=== PATIENT | female | born 1980 | race Caucasian/White ===

== ENCOUNTER 2016-09-06 19:08 | Outpatient (CLI) | payer OTHER ==
[~2016-09-06] VITALS: Ht 157.5 cm; Wt 87.9 kg
[2016-09-06 20:16] VITALS: Ht 157.5 cm; Wt 87.9 kg
[2016-09-06 20:17] VITALS: BP 120/67; PULSE 93; RESP 18
[2016-09-06] MEDS ORDERED: PREN-19 PO (20:21)
--- NOTE | 2016-09-06 20:57 | PN ---
Date/Time of Note Date/Time of Note DATE: 09/06/16 TIME: 20:54 OB Subjective Subjective Subjective 36 yo P3 @ 37.4 wks w abdominal pain good FM, possible LOF, no VB OB Objective Objective Objective 120/67, 93, 18, 98.4 Abdomen- gravid, n/t FHT- Cat I [place]- irreg ctx Abdomen: WNL Accelerations: Accelerations Present Decelerations: No Decelerations OB Assessment/Plan Other Assessment: r/o ROM, labor Other plan: nurse to do SVE ROM+ to be done sono for BPP/ANGELITO if all neg, not in labor, d/c home SENDY SIMMONS MD Sep 06, 2016 20:57
--- NOTE | 2016-09-06 21:30 | RADRPT ---
PROCEDURE: US OB biophysical profile. CLINICAL INDICATION: decreased movements, leaking fluid TECHNIQUE: Multiple sonographic images of the pelvis were obtained. The images were reviewed on a PACS workstation. COMPARISON: No prior studies are available for comparison. FINDINGS: There is a single viable intrauterine gestation. Cardiac activity is present with 114 beats per min [place]. There is a vertex presentation. The placenta is fundal. There is no evidence of placental abruption. There is a normal amount of amniotic fluid with an ANGELITO = 11.2 cm. Biophysical profile: movement 2/2 tone 2/2. breathing 2/2 ANGELITO 2/2 Total 03/12 RPTAT: AA . IMPRESSION: Normal biophysical profile. . .Ramesh Smith MD, Date Time Electronically viewed and signed by .Ramesh Smith MD, MD on 09/06/2016 21:30 .S/
--- NOTE | 2016-09-06 23:56 | TRIAGE ---
OB Triage Datetime Report Generated by CPN: 09/06/2016 23:56 Datetime: 09/06/2016 21:45 Vaginal Exam Dilatation (cms): 3.5 Effacement (%): 80 Station: -3 Exam By: M SALDAÑA Vaginal Bleeding: None Cervix, Consistency: Soft Cervix, Position: Posterior Datetime: 09/06/2016 20:13 Assessment Type: Triage Maternal Assessment Level of Consciousness: Fully Conscious DTR's/Clonus: DTRs 2+; No Clonus Headache: Denies Blurred Vision: Yes Respiratory Effort: Unlabored Breath Sounds, Left: Clear and Equal Breath Sounds, Right: Clear and Equal Nausea/Vomiting: Denies RUQ Epigastric Pain: Denies Lower Extremities Edema: None Degree: None Upper Extremities Edema: None Degree: None Facial Edema: None Datetime: 09/06/2016 20:10 EGA: 37.4 Datetime: 09/06/2016 19:49 Time of Arrival: 09/06/2016 19:05 Arrived By: Ambulatory Arrived From: Home Chief Complaint: Constant Low back pain and low abd pain Movement: Present Contractions: Occasional Time Contractions Began: 09/02/2016 09:00 Contractions: Q2-3HRS Rupture of Membranes: Denies Vaginal Bleeding: None Vaginal Discharge: Denies Recent Sexual Intercouse: Denies Abdominal Trauma: Not Applicable Patient Complaints: Contractions; Back Pain Initial Plan: VS, EFM, SVE, ROM+,BPP, REPEAT SVE
== END 2016-09-06 22:45 | disposition home or self-care (01) ==
LOC: OBT 19:08 → L-D 19:08 → OBT 22:45 → MERGE 09-23 11:13
PROVIDERS: ATTEND Obstetrics & Gynecology
DX: O26.893 Other specified pregnancy related conditions, third trimester (principal); R10.9 Unspecified abdominal pain; O09.523 Supervision of elderly multigravida, third trimester; Z3A.37 37 weeks gestation of pregnancy
CPT/HCPCS: 76818; 84112; Z7500; G0463

== ENCOUNTER 2016-09-19 16:31 | Inpatient (IN) | payer OTHER ==
[~2016-09-19] VITALS: Ht 160 cm; Wt 87.5 kg
[~2016-09-19 16:31] MED LIST: PREN-19 PO
[2016-09-19 16:36] VITALS: Ht 160 cm; Wt 87.5 kg
[2016-09-19 16:37] VITALS: BP 124/67
--- NOTE | 2016-09-19 18:13 | RADRPT ---
PROCEDURE: US OB biophysical profile. CLINICAL INDICATION: evaluation, labor TECHNIQUE: Multiple sonographic images of the pelvis were obtained. The images were reviewed on a PACS workstation. COMPARISON: Obstetrical ultrasound from 09/06/2016 FINDINGS: There is a single viable intrauterine gestation. Cardiac activity is present with 157 beats per min [place]. There is a vertex presentation. The placenta is fundal. There is no evidence of placental abruption. There is a low amount of amniotic fluid with an ANGELITO = 5.3 cm. Biophysical profile: movement 2/2 tone 2/2. breathing 2/2 ANGELITO 2/2 Total 03/12 RPTAT: AA . IMPRESSION: Normal biophysical profile. Low ANGELITO of 5.3 cm. Physician Joesph Date Time Electronically viewed and signed by Physician Joesph on 09/19/2016 18:13 /
[2016-09-19] MEDS ORDERED: LACTATED RINGER'S 1,000 ML IV ONE (19:00)
[2016-09-19 20:16] LABS: ADD UMIC NO; URINE BILIRUBIN (Dip) NEGATIVE (NEGATIVE); URINE BLOOD (Dip) NEGATIVE (NEGATIVE); URINE COLOR LT. YELLOW (YELLOW); URINE GLUCOSE (Dip) NEGATIVE (NEGATIVE); URINE KETONES (Dip) NEGATIVE (NEGATIVE); URINE LEUKOCYTE ESTERASE (Dip) NEGATIVE (NEGATIVE); URINE NITRITE (Dip) NEGATIVE (NEGATIVE); URINE TOTAL PROTEIN (Dip) NEGATIVE (NEGATIVE); URINE UROBILINOGEN (Dip) 0.2 E.U./dL (0.1-1.0)
--- NOTE | 2016-09-19 21:41 | HP ---
Date/Time of Note Date/Time of Note DATE: 09/19/16 TIME: 21:38 OB - History Hx of Present Free Text/Dictation 36-year-old with IUP at 39 weeks [address] care at [facility] presented with complaint of contractions. She was noted to have minimally changing during observation however she had borderline low ANGELITO and ultrasound. ANGELITO was 5.3. She reported leaking of amniotic fluid for the last 3 days. She denied any fever or chills. I am not sure reported negative. Patient will be admitted for observation rule out labor as well as hydration and repeat her ANGELITO tomorrow. If any cervical change occurs she will be admitted for labor otherwise we will repeat her amniotic fluid index after hydration tomorrow BPP 03/12. Patient denies any complications during her antepartum course. : 4 Para: 3 Care: Good Care Past Family/Social History * Past Medical, Surgical, Family and Obstetric Histories reviewed from chart. OB Admission Exam Vital Signs Vital Signs Vital Signs Date Time Temp Pulse Resp B/P Pulse Ox O2 Delivery O2 Flow Rate FiO2 09/19/16 16:37 97.8 124/67 Room Air Physical Exam HEENT: WNL Heart: Rhythm Normal Lungs: Clear Abdomen: WNL Extremities: Normal Reflexes: Normal Cervical Dilatation: Fingertip Effacement: 50% Station: -3 Membranes: Intact Heart Rate: 130's Accelerations: Accelerations Present Decelerations: No Decelerations Varibility: Moderate Contractions on Admission: >10 Minutes Apart Intensity: Moderate OB Assessment/Plan Other Assessment: IUP at 39 weeks Rule out labor Borderline low amniotic fluid. ANGELITO 5.9 Other plan: Will be admitted to labor and delivery IV hydration Serial cervical exam If does not go to labor consider repeat ANGELITO tomorrow after overnight hydration FRANK MONTIEL MD Sep 19, 2016 21:41
--- NOTE | 2016-09-19 22:13 | TRIAGE ---
OB Triage Datetime Report Generated by CPN: 09/19/2016 22:13 Datetime: 09/19/2016 21:50 Monitor Mode: External Quality: Mild Pattern: Normal: <= 5 Contractions in 10 Minutes Resting Tone [place]: Relaxed Heart Rate FHR Baseline Rate: 130 Monitor Mode: External US FHR Baseline Changes: No Baseline Change Variability: Moderate 6-25 bpm Accelerations: 15X15 Decelerations: None Category: Category I Datetime: 09/19/2016 20:45 Monitor Mode: External Quality: Mild Pattern: Normal: <= 5 Contractions in 10 Minutes Resting Tone [place]: Relaxed Contraction Comments: toco replaced Heart Rate FHR Baseline Rate: 130 Monitor Mode: External US FHR Baseline Changes: No Baseline Change Variability: Moderate 6-25 bpm Accelerations: 15X15 Decelerations: None Category: Category I Vaginal Exam Dilatation (cms): 1.0 Effacement (%): 40 Station: -3 Exam By: E Alvarado Membrane Status: Intact Amniotic Fluid Amount: None Amniotic Fluid Odor: None Vaginal Bleeding: None Pool: Negative Cervix, Consistency: Soft Cervix, Position: Posterior Presentation 'A': Cephalic Datetime: 09/19/2016 20:30 Stage of : OB Triage Datetime: 09/19/2016 20:02 Monitor Mode: External Quality: Mild Pattern: Normal: <= 5 Contractions in 10 Minutes Resting Tone [place]: Relaxed Heart Rate FHR Baseline Rate: 140 Monitor Mode: External US FHR Baseline Changes: No Baseline Change Variability: Moderate 6-25 bpm Accelerations: 15X15 Decelerations: None Category: Category I Datetime: 09/19/2016 19:20 Stage of : OB Triage Monitor Mode: External Quality: Mild Pattern: Normal: <= 5 Contractions in 10 Minutes Resting Tone [place]: Relaxed Heart Rate FHR Baseline Rate: 130 Monitor Mode: External US FHR Baseline Changes: No Baseline Change Variability: Moderate 6-25 bpm Accelerations: 15X15 Decelerations: None Category: Category I Pain Assessment Pain Scale: 4 Pain Presence: Intermittent Pain Type: Cramping Pain Location: Abdomen Datetime: 09/19/2016 18:53 Labor Evaluation Frequency: 0 Monitor Mode: External Pattern: Normal: <= 5 Contractions in 10 Minutes Resting Tone [place]: Relaxed Heart Rate FHR Baseline Rate: 135 Monitor Mode: External US Accelerations: 15X15 Decelerations: None Category: Category I Datetime: 09/19/2016 18:49 Stage of : OB Triage Datetime: 09/19/2016 17:11 Stage of : OB Triage Comments: ORDERS- FOR EFW BPP/ANGELITO Datetime: 09/19/2016 16:42 Stage of : OB Triage Assessment Type: Triage Maternal Assessment Level of Consciousness: Fully Conscious DTR's/Clonus: DTRs 2+; No Clonus Headache: Denies Blurred Vision: No Respiratory Effort: Unlabored; Regular Rhythm; Equal Expansion Breath Sounds, Left: Clear and Equal Breath Sounds, Right: Clear and Equal Nausea/Vomiting: Denies RUQ Epigastric Pain: Denies Lower Extremities Edema: None Degree: None Upper Extremities Edema: None Degree: None Facial Edema: None Temperature Route: Oral Fall Risk Assessment History of Falling: (0) No Secondary Diagnosis: (0) No Ambulatory Aid: (0) Bedrest/Nurse Assist IV Therapy: (0) No Gait: (0) Normal/Bedrest/Immobile Mental Status: (0) Oriented to Own Ability Fall Score: 0 Fall Risk Score Definition: No Risk: No action required Pain Assessment Pain Scale: 5 Pain Presence: Intermittent Pain Type: Contraction Pain Location: Abdomen Pain Goal: 0 Vaginal Exam Dilatation (cms): 0.5 Effacement (%): 50 Station: -3 Exam By: S. ELINOR Datetime: 09/06/2016 22:52 Stage of : OB Triage Labor Evaluation Frequency: 0 Monitor Mode: External Resting Tone [place]: Relaxed Heart Rate FHR Baseline Rate: 135 Monitor Mode: External US Variability: Moderate 6-25 bpm Accelerations: 15X15 Decelerations: None Category: Category I Datetime: 09/06/2016 22:48 Vaginal Exam Dilatation (cms): 0.5 Effacement (%): 70 Station: -3 Exam By: M SALDAÑA Vaginal Bleeding: None Cervix, Consistency: Moderate Cervix, Position: Posterior Presentation 'A': Cephalic Datetime: 09/06/2016 20:26 Labor Evaluation Frequency: occasional Monitor Mode: External Duration (sec)2399: 60-80 Quality: Mild Resting Tone [place]: Relaxed Heart Rate FHR Baseline Rate: 135 Monitor Mode: External US Variability: Moderate 6-25 bpm Accelerations: 15X15 Decelerations: None Category: Category I Datetime: 09/06/2016 20:13 Fall Risk Assessment History of Falling: (0) No Secondary Diagnosis: (0) No Ambulatory Aid: (0) Bedrest/Nurse Assist IV Therapy: (0) No Gait: (0) Normal/Bedrest/Immobile Mental Status: (0) Oriented to Own Ability Fall Score: 0 Fall Risk Score Definition: No Risk: No action required Datetime: 09/06/2016 20:10 Time of Arrival: 09/19/2016 16:32 EGA: 39.3 Arrived By: Wheelchair Arrived From: Home Chief Complaint: UC'S Movement: Present Contractions: Regular Time Contractions Began: 09/19/2016 08:00 Contractions: Q 5 MINUTES Rupture of Membranes: Denies Vaginal Bleeding: None Vaginal Discharge: Denies Recent Sexual Intercouse: Denies Abdominal Trauma: Not Applicable Patient Complaints: Contractions Initial Plan: NST, VE Datetime: 09/06/2016 19:49 Provider Notified: IRIS
[2016-09-19] MEDS ORDERED: ACETAMINOPHEN 325 MG TAB PO PRN (22:30)
[2016-09-19] MEDS ORDERED: AL HYDROX/MG HYDROX/SIMETH 30 ML CUP PO PRN (22:30)
[2016-09-19 22:47] LABS: INR 0.97; PROTIME 12.9 Sec (12.2-14.2)
[2016-09-19] MEDS: LACTATED RINGER'S 1,000 ML IV SCH (22:47)
[2016-09-19 22:48] LABS: PARTIAL THROMBOPLASTIN TIME 30.3 Sec (25.0-35.0)
[2016-09-19 23:03] LABS: BASOPHIL # 0.1 10^3/ul (0.0-0.1); BASOPHILS % 0.5 % (0.0-2.0); HEMATOCRIT 33.5 % (37.0-47.0); LYMPHOCYTES # 2.3 10^3/ul (0.8-2.9); LYMPHOCYTES % 21.4 % (15.0-51.0); MEAN CORPUSCULAR HEMOGLOBIN 26.2 pg (29.0-33.0); MEAN CORPUSCULAR HGB CONC 32.9 g/dl (32.0-37.0); MEAN CORPUSCULAR VOLUME 79.8 fl (82.0-101.0); MEAN PLATELET VOLUME 13.6 fl (7.4-10.4); MONOCYTE # 0.6 10^3/ul (0.3-0.9); MONOCYTES % 5.2 % (0.0-11.0); NEUTROPHIL # 7.8 10^3/ul (1.6-7.5); NEUTROPHILS % 72.9 % (39.0-77.0); PLATELET COUNT 223 10^3/UL (140-440); RED CELL DISTRIBUTION WIDTH 16.7 % (11.5-14.5); UNCORRECTED WBC 10.8 10^3/ul (4.8-10.8); WHITE BLOOD COUNT 10.8 10^3/ul (4.8-10.8)
[2016-09-19 23:05] LABS: CONDITION 1; LH ANALYZER COMMENTS 1; SUSPECT 1
[2016-09-20] MEDS: LACTATED RINGER'S 1,000 ML IV SCH (04:05)
--- NOTE | 2016-09-20 07:09 | RADRPT ---
PROCEDURE: Obstetrical ultrasound, limited. CLINICAL INDICATION: Pelvic pain. TECHNIQUE: Multiple sonographic images of the pelvis were obtained using transabdominal technique . Images were obtained with holman scale and color Doppler. The images were reviewed on a PACS works tation. COMPARISON: 09/19/2016. FINDINGS: There is a single living intrauterine gestation with the fetus in a vertex presentation. hear t tones of 131 beats per minute are identified. The placenta is posterior in location, grade 3. Th ere is low normal amniotic fluid volume with an ANGELITO of 8.1 cm. IMPRESSION: Single viable intrauterine gestation. Low normal ANGELITO of 8.1 cm. .Philipp Nino MD, MD Date Time Electronically viewed and signed by .Philipp Nino MD, on 09/20/2016 07:08 .T/
--- NOTE | 2016-09-20 11:07 | RADRPT ---
PROCEDURE: Limited OB ultrasound CLINICAL INDICATION: Low ANGELITO TECHNIQUE: Sonographic evaluation to assess the ANGELITO was performed. Transabdominal imaging of the gravid uterus was performed. COMPARISON: OB ultrasound for ANGELITO dated 09/20/2016 at 07:00 a.m. FINDINGS: There is a single live intrauterine with a heart rate of 150 bpm. position is cephalic. The placenta is posterior. The ANGELITO measures 8.0 cm. IMPRESSION: The ANGELITO measures 8.0 cm. No significant interval change. RPTAT: HH .Sally Faustin MD, MD Date Time Electronically viewed and signed by .Sally Faustin MD, on 09/20/2016 11:07 .G/
--- NOTE | 2016-09-21 07:47 | RADRPT ---
PROCEDURE: US OB. CLINICAL INDICATION: Size and dates TECHNIQUE: Multiple sonographic images of the pelvis and gravid uterus were obtained. The images were reviewed on a PACS workstation. COMPARISON: 09/06/16 FINDINGS: There is a single viable intrauterine gestation. Cardiac activity is present with 159 beats per min [place]. There is a vertex presentation. The placenta is fundal. There is no evidence for an abruption or placenta previa. Measurements were made in order to determine age. The results are as follows: BPD =9.6 cm HC =34.4 cm AC =33.2 cm FL =7.7 cm Estimated gestational age of approximately 38 weeks and 6 days based on ultrasound measurements. Clinical age: 39 weeks and 3 days. The estimated date of delivery is 09/27/16, based on ultrasound measurements. The EFW = 3430 g, 42.4%, based on LMP age. RPTAT: AA IMPRESSION: Single viable intrauterine gestation of approximately 38 weeks and 6 days based on ultrasound measu rements. .Ramesh Smith MD, Date Time Electronically viewed and signed by .Ramesh Smith MD, on 09/19/2016 17:56 .S/
== END 2016-09-20 10:45 | disposition home or self-care (01) | DRG 782 ==
LOC: L-D 16:31 → OBT 16:31 → L-D 21:15 → OBT 21:15 → L-D 22:07
PROVIDERS: ADMIT Obstetrics & Gynecology; ATTEND Obstetrics & Gynecology
DX: O41.03X0 Oligohydramnios, third trimester, not applicable or unspecified (principal); Z3A.39 39 weeks gestation of pregnancy
CPT/HCPCS: 36415; 76815; 76816; 76818; 81003; 84112; 85025; 85610; 85730; 86592; 86900; 86901; 96360; 96361; G0463; J7120

== ENCOUNTER 2016-09-26 09:23 | Outpatient (CLI) | payer OTHER ==
[~2016-09-26] VITALS: Ht 157.5 cm; Wt 90.6 kg
[2016-09-26 09:31] VITALS: BP 116/72; PULSE 74; RESP 18; Ht 157.5 cm; Wt 90.6 kg
[2016-09-26] MEDS ORDERED: FER325 PO (09:31)
--- NOTE | 2016-09-26 10:16 | RADRPT ---
PROCEDURE: OB ultrasound for biophysical profile CLINICAL INDICATION: Post dates TECHNIQUE: Multiple sonographic images of the pelvis were obtained. Transabdominal view of the gr avid uterus are available for review. The images were reviewed on a PACS workstation. COMPARISON: OB ultrasound 07/20/2017 FINDINGS: breathing movement = 2/2 tone = 2/2 motion = 2/2 ANGELITO = 2/2 ANGELITO = 5.2 cm, decreased compared to prior study. Single live intrauterine with cardiac activity. heart rate equals 129 beats p er minute. Presentation is cephalic. The placenta is posterior. IMPRESSION: 1. Single viable intrauterine gestation. 2. Biophysical profile = 8/8. 3. ANGELITO = 5.2 cm, decreased compared to prior study, and consistent with borderline oligohydramnios. Continued follow-up is recommended. RPTAT: KK .Howard Connolly MD, MD Date Time Electronically viewed and signed by .Howard Connolly MD, MD on 09/26/2016 10:16 .B/
--- NOTE | 2016-09-26 10:19 | TRIAGE ---
OB Triage Datetime Report Generated by CPN: 09/26/2016 10:18 Datetime: 09/26/2016 09:29 Assessment Type: Triage Maternal Assessment Level of Consciousness: Fully Conscious DTR's/Clonus: DTRs 2+; No Clonus Headache: Denies Blurred Vision: No Respiratory Effort: Unlabored; Regular Rhythm; Equal Expansion Breath Sounds, Left: Clear and Equal Breath Sounds, Right: Clear and Equal Nausea/Vomiting: Denies RUQ Epigastric Pain: Denies Lower Extremities Edema: None Degree: None Upper Extremities Edema: None Degree: None Facial Edema: None Fall Risk Assessment History of Falling: (0) No Secondary Diagnosis: (0) No Ambulatory Aid: (0) Bedrest/Nurse Assist IV Therapy: (0) No Gait: (0) Normal/Bedrest/Immobile Mental Status: (0) Oriented to Own Ability Fall Score: 0 Fall Risk Score Definition: No Risk: No action required Datetime: 09/20/2016 11:22 Comments: MONITOR OFF.PT DC HOME IN STABLE CONDITION.DC INSTRUCTIONS AND LABOR PRECAURTIONS GIVEN. PT TO GO TO TRIAGE TOMORROW TO REPEAT ANGELITO.PT VERBALIZES UNDERSTANDING Datetime: 09/20/2016 11:20 Labor Evaluation Frequency: NONE Pattern: Normal: <= 5 Contractions in 10 Minutes Heart Rate FHR Baseline Rate: 125 FHR Baseline Changes: No Baseline Change Variability: Moderate 6-25 bpm Accelerations: 15X15 Decelerations: None Category: Category I Pain Presence: None/Denies Datetime: 09/20/2016 11:09 Comments: U/S RESULT ANGELITO REPEATED 8.0 Datetime: 09/20/2016 11:06 Vaginal Exam Dilatation (cms): 1.0 Effacement (%): 50 Station: -3 Exam By: MJ Datetime: 09/20/2016 10:35 Stage of : Antepartum Labor Evaluation Frequency: 4-7 Monitor Mode: External Duration (sec)2399: 50-65 Quality: Mild Pattern: Normal: <= 5 Contractions in 10 Minutes Resting Tone [place]: Relaxed Heart Rate FHR Baseline Rate: 125 Monitor Mode: External US FHR Baseline Changes: No Baseline Change Variability: Moderate 6-25 bpm Accelerations: 15X15 Decelerations: None Category: Category I Pain Assessment Pain Scale: 2 Pain Presence: Intermittent Pain Type: Cramping Pain Location: Abdomen Datetime: 09/20/2016 09:40 Labor Evaluation Frequency: 4-7 Monitor Mode: External Duration (sec)2399: 50-65 Quality: Mild Pattern: Normal: <= 5 Contractions in 10 Minutes Resting Tone [place]: Relaxed Heart Rate FHR Baseline Rate: 125 Monitor Mode: External US FHR Baseline Changes: No Baseline Change Variability: Moderate 6-25 bpm Accelerations: 15X15 Decelerations: None Category: Category I Pain Assessment Pain Scale: 2 Pain Presence: Intermittent Pain Type: Cramping Pain Location: Abdomen Datetime: 09/20/2016 09:00 Stage of : Antepartum Labor Evaluation Frequency: 2-7 Monitor Mode: External Duration (sec)2399: 40-55 Quality: Mild Pattern: Normal: <= 5 Contractions in 10 Minutes Resting Tone [place]: Relaxed Heart Rate FHR Baseline Rate: 125 Monitor Mode: External US FHR Baseline Changes: No Baseline Change Variability: Moderate 6-25 bpm Accelerations: 15X15 Decelerations: None Category: Category I Datetime: 09/20/2016 08:51 Comments: SNACK AND JUICE OFFERED Datetime: 09/20/2016 08:30 Comments: U/S RESULT OBTAINED.ANGELITO 8.1 Datetime: 09/20/2016 08:00 Labor Evaluation Frequency: 2-7 Monitor Mode: External Duration (sec)2399: 40-65 Quality: Mild Pattern: Normal: <= 5 Contractions in 10 Minutes Resting Tone [place]: Relaxed Heart Rate FHR Baseline Rate: 125 Monitor Mode: External US FHR Baseline Changes: No Baseline Change Variability: Moderate 6-25 bpm Accelerations: 15X15 Decelerations: None Category: Category I Pain Assessment Pain Scale: 4 Pain Presence: Intermittent Pain Type: Cramping Pain Location: Abdomen Pain Relief Measures: Comfort Measures Datetime: 09/20/2016 07:25 Assessment Type: Ongoing Assessment Maternal Assessment Level of Consciousness: Fully Conscious DTR's/Clonus: DTRs 2+; No Clonus Headache: Denies Blurred Vision: No Respiratory Effort: Unlabored; Regular Rhythm; Equal Expansion Breath Sounds, Left: Clear and Equal Breath Sounds, Right: Clear and Equal Nausea/Vomiting: Denies RUQ Epigastric Pain: Denies Lower Extremities Edema: None Degree: None Upper Extremities Edema: None Degree: None Facial Edema: None Fall Risk Assessment History of Falling: (0) No Secondary Diagnosis: (0) No Ambulatory Aid: (0) Bedrest/Nurse Assist IV Therapy: (20) Yes Gait: (0) Normal/Bedrest/Immobile Mental Status: (0) Oriented to Own Ability Fall Score: 20 Fall Risk Score Definition: No Risk: No action required Datetime: 09/20/2016 06:30 Stage of : Antepartum Labor Evaluation Frequency: 2-7 Monitor Mode: External Duration (sec)2399: 50-70 Pattern: Normal: <= 5 Contractions in 10 Minutes Resting Tone [place]: Relaxed Heart Rate FHR Baseline Rate: 130 Monitor Mode: External US Variability: Moderate 6-25 bpm Accelerations: 15X15 Decelerations: None Category: Category I Pain Assessment Pain Scale: 5 Pain Presence: Intermittent Pain Type: Contraction Pain Location: Abdomen; Back Pain Relief Measures: Comfort Measures Datetime: 09/20/2016 05:44 Monitor Mode: External Monitor Mode: External US Datetime: 09/20/2016 05:43 Monitor Mode: External Datetime: 09/20/2016 05:36 Monitor Mode: External Pattern: Normal: <= 5 Contractions in 10 Minutes Resting Tone [place]: Relaxed Contraction Comments: Not picking up contractions due to patient position. Heart Rate FHR Baseline Rate: 130 Monitor Mode: External US Variability: Moderate 6-25 bpm Accelerations: 15X15 Decelerations: Variable Category: Category II Pain Assessment Pain Scale: 5 Pain Presence: Intermittent Pain Type: Contraction Pain Location: Abdomen; Back Pain Relief Measures: Comfort Measures Datetime: 09/20/2016 04:24 Stage of : Labor Labor Evaluation Frequency: IRREGULAR Monitor Mode: External Duration (sec)2399: 40-80 Pattern: Normal: <= 5 Contractions in 10 Minutes Resting Tone [place]: Relaxed Heart Rate FHR Baseline Rate: 130 Monitor Mode: External US Variability: Moderate 6-25 bpm Accelerations: 15X15 Decelerations: Prolonged Category: Category I Pain Assessment Pain Scale: 5 Pain Presence: Intermittent Pain Type: Contraction Pain Location: Abdomen; Back Pain Relief Measures: Comfort Measures Datetime: 09/20/2016 04:23 Monitor Mode: External US Datetime: 09/20/2016 04:22 Monitor Mode: External US Datetime: 09/20/2016 04:21 Monitor Mode: External US Datetime: 09/20/2016 03:30 Stage of : Labor Labor Evaluation Frequency: Irregular Monitor Mode: External Duration (sec)2399: 60-80 Pattern: Normal: <= 5 Contractions in 10 Minutes Resting Tone [place]: Relaxed Heart Rate FHR Baseline Rate: 135 Monitor Mode: External US Variability: Moderate 6-25 bpm Accelerations: 15X15 Decelerations: None Category: Category I Pain Assessment Pain Scale: 5 Pain Presence: Intermittent Pain Type: Contraction Pain Location: Abdomen; Back Pain Relief Measures: Comfort Measures Datetime: 09/20/2016 03:28 Monitor Mode: External US Datetime: 09/20/2016 03:08 Stage of : Antepartum Pain Assessment Pain Scale: 5 Pain Presence: Intermittent Pain Type: Contraction Pain Location: Abdomen; Back Pain Goal: 2 Pain Relief Measures: Comfort Measures Vaginal Exam Dilatation (cms): 1.0 Effacement (%): 40 Station: -3 Exam By: SILVANO KAUFMAN Vaginal Bleeding: None Cervix, Consistency: Soft Cervix, Position: Posterior Datetime: 09/20/2016 02:34 Labor Evaluation Frequency: Irregular Monitor Mode: External Duration (sec)2399: 50-100 Pattern: Normal: <= 5 Contractions in 10 Minutes Resting Tone [place]: Relaxed Heart Rate FHR Baseline Rate: 135 Monitor Mode: External US Variability: Moderate 6-25 bpm Accelerations: 15X15 Decelerations: Late Category: Category I Datetime: 09/20/2016 02:11 Stage of : Antepartum Interventions: IV Bolus Datetime: 09/20/2016 01:50 Stage of : Labor Datetime: 09/20/2016 01:35 Stage of : Antepartum Monitor Mode: External Pattern: Normal: <= 5 Contractions in 10 Minutes Resting Tone [place]: Relaxed Contraction Comments: No contractions picked up at this time due to patient's position. [place] adjus hernandez. Heart Rate FHR Baseline Rate: 130 Monitor Mode: External US Variability: Moderate 6-25 bpm Accelerations: 15X15 Decelerations: None Category: Category I Pain Assessment Pain Scale: 5 Pain Presence: Intermittent Pain Type: Contraction Pain Location: Abdomen; Back Pain Relief Measures: Comfort Measures Datetime: 09/20/2016 00:25 Stage of : Antepartum Labor Evaluation Frequency: IRREGULAR Monitor Mode: External Duration (sec)2399: 60-100 Pattern: Normal: <= 5 Contractions in 10 Minutes Resting Tone [place]: Relaxed Heart Rate FHR Baseline Rate: 125 Monitor Mode: External US Variability: Moderate 6-25 bpm Accelerations: Prolonged Decelerations: None Category: Category I Pain Assessment Pain Scale: 5 Pain Presence: Intermittent Pain Type: Contraction Pain Location: Abdomen; Back Pain Goal: 2 Pain Relief Measures: Comfort Measures Datetime: 09/19/2016 23:30 Stage of : Antepartum Labor Evaluation Frequency: IRREGULAR Monitor Mode: External Duration (sec)2399: 60-100 Pattern: Normal: <= 5 Contractions in 10 Minutes Resting Tone [place]: Relaxed Heart Rate FHR Baseline Rate: 125 Monitor Mode: External US Variability: Moderate 6-25 bpm Accelerations: Prolonged Decelerations: None Category: Category I Pain Assessment Pain Scale: 5 Pain Presence: Intermittent Pain Type: Contraction Pain Location: Abdomen; Back Pain Relief Measures: Comfort Measures Datetime: 09/19/2016 22:21 Stage of : Antepartum Assessment Type: Admission Assessment Time of Arrival: 09/26/2016 09:18 EGA: 40.3 Arrived By: Ambulatory Arrived From: Home Chief Complaint: PT HERE FOR NST/BPP FOR POST DATES Movement: Present Contractions: Denies/Absent Rupture of Membranes: Denies Vaginal Bleeding: None Vaginal Discharge: Denies Recent Sexual Intercouse: Denies Abdominal Trauma: Not Applicable Patient Complaints: None Time Provider Notified: 09/26/2016 10:15 Provider Notified: DONNA Initial Plan: NST/BPP Maternal Assessment Level of Consciousness: Fully Conscious DTR's/Clonus: DTRs 2+; No Clonus Headache: Denies Blurred Vision: No Respiratory Effort: Unlabored; Regular Rhythm; Equal Expansion Breath Sounds, Left: Clear and Equal Breath Sounds, Right: Clear and Equal Nausea/Vomiting: Denies RUQ Epigastric Pain: Denies Lower Extremities Edema: None Degree: None Upper Extremities Edema: None Degree: None Facial Edema: None Fall Risk Assessment History of Falling: (0) No Secondary Diagnosis: (0) No Ambulatory Aid: (0) Bedrest/Nurse Assist IV Therapy: (20) Yes Gait: (0) Normal/Bedrest/Immobile Mental Status: (0) Oriented to Own Ability Fall Score: 20 Fall Risk Score Definition: No Risk: No action required Labor Evaluation Frequency: occasional Duration (sec)2399: 60 Pattern: Normal: <= 5 Contractions in 10 Minutes Resting Tone [place]: Relaxed Heart Rate FHR Baseline Rate: 135 Variability: Moderate 6-25 bpm Accelerations: 15X15 Decelerations: None Category: Category I Pain Assessment Pain Scale: 0 Pain Presence: None/Denies Pain Type: N/A Pain Goal: 2 Datetime: 09/19/2016 16:42 Fall Score: 0 Fall Risk Score Definition: No Risk: No action required Datetime: 09/06/2016 20:13 Fall Score: 0 Fall Risk Score Definition: No Risk: No action required Datetime: 09/06/2016 20:10 EGA: 39.3 Arrived From: Triage
--- NOTE | 2016-12-04 16:45 | QN ---
Documentation Comment Post dates SUMA THOMPSON MD December 04, 2016 16:45
== END 2016-09-26 10:25 | disposition home or self-care (01) ==
LOC: OBT 09:23 → L-D 09:24 → OBT 10:25
PROVIDERS: ATTEND Obstetrics & Gynecology
DX: O48.0 Post-term pregnancy (principal); O09.523 Supervision of elderly multigravida, third trimester; Z3A.40 40 weeks gestation of pregnancy
CPT/HCPCS: 76818; Z7500; G0463

== ENCOUNTER 2016-09-26 16:57 | Inpatient (IN) | payer OTHER ==
[~2016-09-26] VITALS: Ht 157.5 cm; Wt 86.8 kg
[~2016-09-26 16:57] MED LIST changes: +FER325 PO
[2016-09-26 17:43] VITALS: Ht 157.5 cm; Wt 86.8 kg
[2016-09-26 17:44] VITALS: BP 125/69; PULSE 93; RESP 18
[2016-09-26] MEDS ORDERED: LIDOCAINE 1% (MPF) 30 ML INJ INJ PRN (18:00)
[2016-09-26] MEDS ORDERED: IBUPROFEN 600 MG TAB PO PRN (18:00)
[2016-09-26] MEDS ORDERED: OXYTOCIN 30 UNITS/LR 500 ML IV PRN (18:00)
[2016-09-26] MEDS ORDERED: CARBOPROST 250 MCG INJ IM PRN (18:00)
[2016-09-26] MEDS ORDERED: ACETAMINOPHEN/CODEINE #3 TAB PO PRN (18:00)
[2016-09-26] MEDS ORDERED: DINOPROSTONE 10 MG VAG SUPP VAG ONE (18:00)
[2016-09-26] MEDS ORDERED: MISOPROSTOL 200 MCG TAB PR PRN (18:00)
[2016-09-26] MEDS ORDERED: OXYTOCIN 30 UNITS/LR 500 ML IV SCH ×2 (18:00)
[2016-09-26] MEDS ORDERED: METHYLERGONOVINE 0.2 MG INJ IM PRN (18:00)
[2016-09-26] MEDS ORDERED: BUTORPHANOL 2 MG INJ IV PRN ×2 (18:00)
[2016-09-26] MEDS: LACTATED RINGER'S 1,000 ML IV SCH (18:26)
[2016-09-26 18:59] LABS: BASOPHILS % 0.3 % (0.0-2.0); HEMATOCRIT 31.2 % (37.0-47.0); HEMOGLOBIN 10.5 g/dl (12.0-16.0); MEAN CORPUSCULAR HEMOGLOBIN 26.9 pg (29.0-33.0); MEAN CORPUSCULAR HGB CONC 33.7 g/dl (32.0-37.0); MEAN CORPUSCULAR VOLUME 79.9 fl (82.0-101.0); MEAN PLATELET VOLUME 13.9 fl (7.4-10.4); MONOCYTE # 0.7 10^3/ul (0.3-0.9); MONOCYTES % 6.6 % (0.0-11.0); NEUTROPHILS % 74.1 % (39.0-77.0); PLATELET COUNT 180 10^3/UL (140-440); RED BLOOD COUNT 3.91 10^6/ul (4.20-5.40); RED CELL DISTRIBUTION WIDTH 17.9 % (11.5-14.5); UNCORRECTED WBC 10.7 10^3/ul (4.8-10.8); WHITE BLOOD COUNT 10.7 10^3/ul (4.8-10.8)
[2016-09-26 19:02] LABS: SUSPECT 1
[2016-09-26 19:03] LABS: CONDITION 1; LH ANALYZER COMMENTS 1
[2016-09-26 19:12] LABS: INR 0.95; PROTIME 12.7 Sec (12.2-14.2)
[2016-09-26 19:13] LABS: PARTIAL THROMBOPLASTIN TIME 28.6 Sec (25.0-35.0)
[2016-09-26 19:42] LABS: ANISOCYTOSIS 1+; HYPOCHROMASIA 2+; MICROCYTOSIS 1+; PLATELET ESTIMATE PLT APPEAR ADEQUATE
[2016-09-26] MEDS ORDERED: LACTATED RINGER'S 1,000 ML IV PRN (23:00)
[2016-09-27] MEDS: LACTATED RINGER'S 1,000 ML IV SCH ×2 (00:27→05:35)
[2016-09-27] MEDS ORDERED: FENTAnyl 2MCG/ML-ROPIV 0.2% 100 ML ONE (03:29)
[2016-09-27] MEDS ORDERED: ONDANSETRON 4 MG INJ IV PRN ×3 (03:30→09:30)
[2016-09-27] MEDS ORDERED: FENTAnyl 2MCG/ML-ROPIV 0.2% 100 ML BAG EPI SCH (03:30)
[2016-09-27] MEDS ORDERED: NALOXONE (0.4 MG/ML) INJ IV PRN ×2 (03:30→09:30)
[2016-09-27] MEDS ORDERED: DIPHENHYDRAMINE 50 MG INJ IV PRN ×3 (03:30→09:30)
[2016-09-27] MEDS ORDERED: TERBUTALINE 1 ML ONE (07:43)
[2016-09-27] MEDS ORDERED: CEFAZOLIN 2 GM/50 ML (PMX) 50 ML IVPB ONE (07:52)
[2016-09-27] MEDS ORDERED: LIDOCAINE 2%/EPI 30 ML INJ ONE (07:57)
[2016-09-27] MEDS ORDERED: morphine SULFATE/PF (10 MG/10 ML) INJ ONE (07:58)
[2016-09-27] MEDS: CEFAZOLIN 2 GM/50 ML (PMX) 50 ML IV SCH ×2 (08:04→10:27)
[2016-09-27] MEDS ORDERED: KETOROLAC 30 MG INJ ONE (08:15)
[2016-09-27] MEDS ORDERED: PROPOFOL 20 ML ONE (08:17)
[2016-09-27] MEDS ORDERED: EPHEDrine SULFATE 50 MG/5 ML SYG ONE (08:46)
--- NOTE | 2016-09-27 09:24 | OPR ---
Operative Report Planned Procedure Procedure date Sep 27, 2016 Procedure Description Under satisfactory spinal anesthesia , the patient was prepped and draped and placed in a supine position, tilted to the left. Pfannenstiel incision was made , carried through the subcutaneous tissue. Bleeders brought under control with electrocautery. Fascia incised to the length of the incision. Rectus muscles from the fascia, divided midline. Peritoneum exposed, entered through a transverse incision. Exploration of abdomen revealed gravid uterus. Bladder flap was developed. Transverse incision was made in the lower segment of the uterus. Amniotic sac ruptured. [] amniotic fluid was heavily meconium stained and there was one loop of nuchal cord. [] Nasal oropharyngeal suction was performed. The baby was handed to the team for immediate attention. The placenta was delivered manually intact. Uterine cavity was cleaned with wet sponge and drainage established. Uterus closed in 2 layers using chromic catgut 1 [] in continuous fashion. Peritoneal cavity irrigated with warm saline. Sponge , needle and instrument count reported to be correct. Abdominal peritoneum closed with 0 chromic catgut continuously. Rectus muscle approximated with chromic catgut 1 []. Fascia closed with Vicryl 1, the subcutaneous fatty tissue was approximated with 2-0 chromic catgut and skin closed with jessica. Estimated blood loss 600 []mL. She tolerated the procedures well and was transferred to the recovery room in stable condition. The was male with score of 9 at 1 minute 9 at 5 minutes and a weight of the baby was 6 pound and 5 ounces End of dictation thank you Post-Procedure Findings: Live Baby [], Apgars [] and [], weight [], position [], [] presentation []cord. Physician Certification I, the undersigned physician, hereby certify that I have discussed the procedure described in this consent form with this patient (or the patient's legal manufacturer's service representative), including: * The risk and benefits of the procedure; * Any adverse reactions that may reasonably be expected to occur; * Any alternative efficacious methods of treatment which may be medically viable ; * The potential problems that may occur during recuperation; * Potential for blood transfusion and associated risks/benefits; and . STACEY PARIKH MD Sep 27, 2016 09:24
[2016-09-27] MEDS ORDERED: METOCLOPRAMIDE 10 MG INJ IV PRN (09:30)
[2016-09-27] MEDS ORDERED: MEPERIDINE 25 MG INJ IV PRN (09:30)
[2016-09-27] MEDS ORDERED: HYDROmorphONE (0.2 MG/ML) 10ML SYG IV PRN ×3 (09:30)
[2016-09-27] MEDS ORDERED: HYDROmorphONE 1 MG/ML SYG IV PRN ×3 (09:30)
[2016-09-27] MEDS: KETOROLAC 30 MG INJ IV PRN (10:12)
--- NOTE | 2016-09-27 11:09 | HP ---
Date/Time of Note Date/Time of Note DATE: 09/27/16 TIME: 10:46 OB - History Hx of Present Free Text/Dictation This is a 36 years old female 40 weeks and 4 days, 4 para 3 EDC September 23, 2006 admitted to [facility] for induction of labor on admission pelvic examination indicating long and closed cervix ,patient was placed on Cervidil induction patient responded with uterine contraction however during the course of labor several times heart deceleration noted some 3-4 minutes down to 70s and 80 due to intolerance of the baby to labor contraction doctor Dina covering attending OB, planned for primary section the indication pros and cons was explained to the patient and she agreed with the operation. This patient has been under the care of [facility] in her course was not complicated with gestational diabetes -induced hypertension or any other surgical or medical condition [facility] history, menarche at age 13 history of total of 4 including present with 3 normal vaginal deliveries Allergies, denies allergy to any known medication Social habit, denies of smoking or drinking Review of system within normal Physical examination 5 feet 191lb, temp 97.5 pulse 114 respiration 18 blood pressure 111/55 Head ears nose and throat negative Neck supple no thyromegaly Lungs clear to P&A Heart normal sinus rhythm no murmur Breasts status compatible with the state of the Abdomen, fundal height 39 cm from symphysis pubis heart category 3 Pelvic exam, cervix completely dilated 100% effaced vertex 0 station Extremities no edema moderate superficial varicosities Impression intrauterine at 40 weeks plus gestation category 3 heart rate Plan, emergency primary section, complication of the surgery including bowel or bladder injury infection wound hematoma has been discussed with the patient and she is willing to go ahead with the operation Chief Complaint: Induction of labor Estimated Due Date: Sep 23, 2016 : 4 Para: 3 Care: Good Care Ultrasounds: Normal mid trimester US Obstetrical Complications: None Medical Complications: None Past Family/Social History * Past Medical, Surgical, Family and Obstetric Histories reviewed from chart. Rubella: immune RPR/VDRL: Negative GBS Status: Negative HBsAG: Negative OB Admission Exam Vital Signs Vital Signs Vital Signs Date Time Temp Pulse Resp B/P Pulse Ox O2 Delivery O2 Flow Rate FiO2 09/26/16 17:44 98.2 93 18 125/69 Room Air Physical Exam HEENT: WNL Heart: Rhythm Normal Lungs: Clear, Equal Abdomen: WNL Extremities: Normal Reflexes: Normal Cervical Dilatation: 10cm Effacement: 100% Station: 0 Membranes: Ruptured Amniotic Fluid: Thin Meconium Heart Rate: 130's Accelerations: Accelerations Present Decelerations: Variable Decelerations Varibility: Moderate Contractions on Admission: None Last 72 hours Lab Results CBC & BMP 09/26/16 18:26 SUMA THOMPSON MD Sep 27, 2016 11:05
[2016-09-27] MEDS ORDERED: TERBUTALINE 1 MG/ML INJ SC ONE (12:00)
[2016-09-27 12:20] VITALS: BP 123/60; PULSE 90; RESP 17
[2016-09-27] MEDS ORDERED: OXYCODONE/ACETAMINOPHEN (5/325) TAB PO PRN (13:30)
[2016-09-27] MEDS ORDERED: OXYTOCIN 30 UNITS/LR 500 ML IV PRN (13:30)
[2016-09-27] MEDS ORDERED: CEFAZOLIN 1 GM/50 ML (PMX) 50 ML IVPB SCH (13:30)
[2016-09-27] MEDS ORDERED: METHYLERGONOVINE 0.2 MG INJ IM PRN (13:30)
[2016-09-27] MEDS ORDERED: ACETAMINOPHEN/CODEINE #3 TAB PO PRN ×2 (13:30)
[2016-09-27] MEDS ORDERED: MISOPROSTOL 200 MCG TAB PR PRN (13:30)
[2016-09-27] MEDS ORDERED: CARBOPROST 250 MCG INJ IM PRN (13:30)
[2016-09-27] MEDS ORDERED: LANOLIN 7 GM TUBE TOP PRN (13:30)
[2016-09-27] MEDS: OXYTOCIN 30 UNITS/LR 500 ML IV SCH ×3 (15:31→20:17)
[2016-09-27 16:00] VITALS: BP 113/62; PULSE 77; RESP 19
[2016-09-27 19:50] VITALS: BP 121/77; RESP 18
[2016-09-27] MEDS: SENNA/DOCUSATE NA (8.6MG/50MG) TAB PO SCH (20:19)
[2016-09-28] VITALS: BP 108/69; PULSE 92; RESP 19
[2016-09-28] MEDS: OXYTOCIN 30 UNITS/LR 500 ML IV SCH ×6 (00:26→21:23)
[2016-09-28 03:54] VITALS: BP 106/64; PULSE 96; RESP 18
[2016-09-28] MEDS: LACTATED RINGER'S 1,000 ML IV SCH ×3 (05:08→21:00)
[2016-09-28] MEDS: KETOROLAC 30 MG INJ IV PRN (05:26)
[2016-09-28 07:30] VITALS: BP 102/55; PULSE 103; RESP 18
[2016-09-28 07:41] LABS: ADD SCAN DIFF NO
[2016-09-28 07:46] LABS: ABNORMAL IP MESSAGE 1; HEMATOCRIT 21.3 % (37.0-47.0); MEAN CORPUSCULAR HEMOGLOBIN 26.4 pg (29.0-33.0); MEAN CORPUSCULAR HGB CONC 31.9 g/dl (32.0-37.0); MEAN CORPUSCULAR VOLUME 82.6 fl (82.0-101.0); MEAN PLATELET VOLUME 14.5 fl (7.4-10.4); PLATELET COUNT 121 10^3/UL (140-415); RED BLOOD COUNT 2.58 10^6/ul (4.20-5.40); RED CELL DISTRIBUTION WIDTH 17.7 % (11.5-14.5); WHITE BLOOD COUNT 10.2 10^3/ul (4.8-10.8)
[2016-09-28 08:13] LABS: HEMOGLOBIN 6.8 g/dl (12.0-16.0)
[2016-09-28] MEDS: SENNA/DOCUSATE NA (8.6MG/50MG) TAB PO SCH ×2 (08:52→21:16)
--- NOTE | 2016-09-28 09:38 | PN ---
Date/Time of Note Date/Time of Note DATE: 09/28/16 TIME: 09:35 OB Subjective Subjective Subjective Post day 1 Afebrile vital sign is stable while resting abdomen soft bowel sounds present lochia moderate Laboratory Tests Test 09/28/16 06:35 Hematocrit 21.3% Hemoglobin 6.8g/dl Mean Corpuscular Hemoglobin 26.4pg Mean Corpuscular Hemoglobin Concent 31.9g/dl Mean Corpuscular Volume 82.6fl Mean Platelet Volume 14.5fl Platelet Count 88561^3/UL Red Blood Count 2.5810^6/ul Red Cell Distribution Width 17.7% White Blood Count 10.210^3/ul Current Medications Medications (Trade) Dose Ordered Sig/Junior Route PRN Reason Start Time Stop Time Status Last Admin Dose Admin Lactated Ringer's (Lr) 1,000 ml @ 125 mls/hr Q8H IV 09/26/16 17:46 09/27/16 13:30 DC 09/27/16 05:35 Dinoprostone (Cervidil Vaginal Supp) 10 mg ONCE ONCE VAG 09/26/16 18:00 09/26/16 18:01 DC 09/26/16 19:48 Butorphanol Tartrate (Stadol) 1 mg Q2H PRN IV PAIN 09/26/16 18:00 09/27/16 13:30 DC Butorphanol Tartrate (Stadol) 2 mg Q2H PRN IV PAIN 09/26/16 18:00 09/27/16 13:30 DC Lidocaine 30 ml 30 ml ONCE PRN INJ EPISIOTOMY/TEARING 09/26/16 18:00 09/27/16 13:30 DC Oxytocin/Lactated Ringer's 500 ml @ 125 mls/hr ONCE -MAY REPEAT X1 IV 09/26/16 18:00 09/27/16 13:30 DC Oxytocin/Lactated Ringer's 500 ml @ 125 mls/hr ONCE IV 09/26/16 18:00 09/27/16 13:30 DC 09/27/16 11:26 Ibuprofen (Motrin) 600 mg ONCE PRN PO Mild Pain (Pain Score 1-3) 09/26/16 18:00 09/27/16 13:30 DC Acetaminophen/ Codeine Phosphate 2 tab 2 tab ONCE PRN PO Moderate to Severe Pain (4-10) 09/26/16 18:00 09/27/16 13:30 DC Lactated Ringer's 1,000 ml @ 2,000 mls/hr Q30M PRN IV PRE-EPIDURAL BOLUS 09/26/16 23:00 09/27/16 13:30 DC 09/27/16 03:00 Oxytocin/Lactated Ringer's 500 ml @ 0 mls/hr ONCE PRN IV For Hemorrhage Management 09/26/16 18:00 09/27/16 13:30 DC Methylergonovine Maleate (Methergine) 0.2 mg ONCE PRN IM VAGINAL BLEEDING 09/26/16 18:00 09/27/16 13:31 DC Carboprost Tromethamine (Hemabate) 250 mcg ONCE PRN IM VAGINAL BLEEDING 09/26/16 18:00 09/27/16 13:31 DC Misoprostol 1000 mcg 1,000 mcg ONCE PRN HI VAGINAL BLEEDING 09/26/16 18:00 09/27/16 13:31 DC Fentanyl/ Ropivacaine 100 ml @ ud STK-MED ONCE .ROUTE 09/27/16 03:29 09/27/16 03:30 DC Naloxone HCl (Narcan) 0.1 mg Q2M PRN IV FOR RESP RATE 8 OR LESS 09/27/16 03:30 09/27/16 09:18 DC Diphenhydramine HCl (Benadryl) 25 mg Q6H PRN IV ITCHING 09/27/16 03:30 09/27/16 09:18 DC Ondansetron HCl (Zofran Inj) 4 mg Q6H PRN IV NAUSEA AND/OR VOMITING 09/27/16 03:30 09/27/16 09:18 DC Fentanyl/ Ropivacaine 100 ml 100 ml EPIDURAL INFUSION EPI 09/27/16 03:30 09/27/16 13:31 DC Terbutaline Sulfate 1 ml @ ud STK-MED ONCE .ROUTE 09/27/16 07:43 09/27/16 07:44 DC Cefazolin Sodium/ Dextrose (Ancef 2 Gm/50 ml (Pmx)) 50 ml @ ud STK-MED ONCE IVPB 09/27/16 07:52 09/27/16 07:53 DC Lidocaine/ Epinephrine (Xylocaine 2%/ Epi) 30 ml STK-MED ONCE .ROUTE 09/27/16 07:57 09/27/16 07:58 DC Morphine Sulfate (Duramorph) 10 mg STK-MED ONCE .ROUTE 09/27/16 07:58 09/27/16 07:59 DC Ketorolac Tromethamine 30 mg 30 mg STK-MED ONCE .ROUTE 09/27/16 08:15 09/27/16 08:16 DC Propofol 20 ml @ ud STK-MED ONCE .ROUTE 09/27/16 08:17 09/27/16 08:18 DC Cefazolin Sodium/ Dextrose (Ancef 2 Gm/50 ml (Pmx)) 50 ml @ 100 mls/hr ONCE IV 09/27/16 08:30 09/27/16 13:31 DC 09/27/16 08:04 Ephedrine Sulfate 50 mg STK-MED ONCE .ROUTE 09/27/16 08:46 09/27/16 08:47 DC Hydromorphone HCl (Dilaudid (Rec)) 0.2 mg PACU ORDER PRN IV MILD PAIN LEVEL 1-3 09/27/16 09:30 09/27/16 13:30 DC Hydromorphone HCl (Dilaudid (Rec)) 0.4 mg PACU ORDER PRN IV MODERATE PAIN LEVEL 4-6 09/27/16 09:30 09/27/16 13:30 DC Hydromorphone HCl (Dilaudid (Rec)) 0.6 mg PACU ORDER PRN IV SEVERE PAIN LEVEL 7-10 09/27/16 09:30 09/27/16 13:30 DC Ondansetron HCl (Zofran Inj) 4 mg PACU ORDER PRN IV NAUSEA AND/OR VOMITING 09/27/16 09:30 09/27/16 13:30 DC Metoclopramide HCl (Reglan) 10 mg PACU ORDER PRN IV NAUSEA AND/OR VOMITING 09/27/16 09:30 09/27/16 13:30 DC Meperidine HCl (Demerol) 25 mg PACU ORDER PRN IV POST-OP RIGORS 09/27/16 09:30 09/27/16 13:30 DC Diphenhydramine HCl (Benadryl) 25 mg PACU ORDER PRN IV PRURITUS 09/27/16 09:30 09/27/16 13:30 DC Naloxone HCl (Narcan) 0.1 mg Q2M PRN IV FOR RESP RATE 8 OR LESS 09/27/16 09:30 09/27/16 13:31 DC Ketorolac Tromethamine (Toradol) 30 mg Q6H PRN IV PAIN 09/27/16 09:30 09/28/16 09:29 DC 09/28/16 05:26 Hydromorphone HCl (Dilaudid) 1 mg Q3H PRN IV BREAKTHROUGH PAIN 09/27/16 09:30 09/28/16 09:29 DC Hydromorphone HCl (Dilaudid) 0.2 mg Q3H PRN IV PAIN LEVEL 1-5 09/27/16 09:30 09/28/16 09:29 DC Hydromorphone HCl (Dilaudid) 0.4 mg Q3H PRN IV PAIN LEVEL 6-10 09/27/16 09:30 09/28/16 09:29 DC Diphenhydramine HCl (Benadryl) 25 mg Q6H PRN IV ITCHING 09/27/16 09:30 09/28/16 09:29 DC Ondansetron HCl (Zofran Inj) 4 mg Q6H PRN IV NAUSEA AND/OR VOMITING 09/27/16 09:30 09/28/16 09:29 DC 09/27/16 15:19 Terbutaline Sulfate (Brethine) 0.25 mg ONCE ONCE SC 09/27/16 12:00 09/27/16 12:14 DC Acetaminophen/ Codeine Phosphate (Tylenol No.3) 1 tab Q4H PRN PO PAIN LEVEL 4-6 09/27/16 13:30 Acetaminophen/ Codeine Phosphate (Tylenol No.3) 2 tab Q4H PRN PO PAIN LEVEL 7-10 09/27/16 13:30 Oxycodone/ Acetaminophen (Percocet (5/ 325)) 1 tab Q4H PRN PO PAIN LEVEL 4-6 09/27/16 13:30 Oxycodone/ Acetaminophen (Percocet (5/ 325)) 2 tab Q4H PRN PO PAIN LEVEL 7-10 09/27/16 13:30 Ibuprofen (Motrin) 600 mg Q6 PO 09/28/16 12:00 Simethicone (Mylicon) 160 mg Q8H PRN PO DISTENSION/GAS/BLOATING 09/27/16 13:30 Senna/Docusate Sodium (Senokot-S) 1 tab BID PO 09/27/16 21:00 09/28/16 08:52 Lanolin (Qdk-H-Jtxizd) 1 applic BEDSIDE MEDICATION PRN TOP BEDSIDE FOR LUCY TO NIPPLES 09/27/16 13:30 09/27/16 15:20 Diphtheria/ Tetanus/Acell Pertussis 0.5 ml 0.5 ml ONCE ONCE IM* 09/30/16 09:00 09/30/16 09:01 Oxytocin/Lactated Ringer's 500 ml @ 0 mls/hr ONCE PRN IV For Hemorrhage Management 09/27/16 13:30 Methylergonovine Maleate (Methergine) 0.2 mg ONCE PRN IM VAGINAL BLEEDING 09/27/16 13:30 Carboprost Tromethamine (Hemabate) 250 mcg ONCE PRN IM VAGINAL BLEEDING 09/27/16 13:30 Misoprostol 1000 mcg 1,000 mcg ONCE PRN HI VAGINAL BLEEDING 09/27/16 13:30 Cefazolin Sodium 50 ml @ 100 mls/hr ONCE IVPB 09/27/16 13:30 09/27/16 13:59 DC 09/27/16 15:21 Oxytocin/Lactated Ringer's 500 ml @ 125 mls/hr Q4H IV 09/27/16 13:23 09/28/16 00:26 Lactated Ringer's (Lr) 1,000 ml @ 125 mls/hr Q8H IV 09/28/16 05:00 09/28/16 05:08 recommended ambulation since her hemoglobin is 6.8 hematocrit 21.3 if not lightheaded and stable while ambulating may not need blood transfusion otherwise recommended 2 units of packed cell, SUMA THOMPSON MD Sep 28, 2016 09:38
[2016-09-28 09:44] LABS: LYMPHOCYTES # 1.2 10^3/ul (0.8-2.9); MONOCYTE # 0.8 10^3/ul (0.3-0.9); NEUTROPHIL # 8.2 10^3/ul (1.6-7.5)
[2016-09-28] MEDS: IBUPROFEN 600 MG TAB PO SCH ×3 (11:44→23:41)
[2016-09-28 16:00] VITALS: BP 109/66; PULSE 103; RESP 18
[2016-09-28 20:00] VITALS: BP 120/72; PULSE 79; RESP 20
[2016-09-29] MEDS: OXYTOCIN 30 UNITS/LR 500 ML IV SCH ×2 (01:23→05:23)
[2016-09-29 03:42] VITALS: PULSE 79; RESP 20
[2016-09-29] MEDS: LACTATED RINGER'S 1,000 ML IV SCH (05:00)
[2016-09-29] MEDS: IBUPROFEN 600 MG TAB PO SCH ×3 (05:30→17:30)
[2016-09-29 07:30] VITALS: BP 104/58; PULSE 89; RESP 19
[2016-09-29] MEDS: SENNA/DOCUSATE NA (8.6MG/50MG) TAB PO SCH ×2 (09:40→21:20)
--- NOTE | 2016-09-29 11:36 | PN ---
Date/Time of Note Date/Time of Note DATE: 09/29/16 TIME: 11:34 OB Subjective Subjective Subjective Post day 2 Afebrile vital signs stable, abdomen soft, uterus firm, lochia normal, extremity normal, good bowel sounds, n Bowel movement. SUMA THOMPSON MD Sep 29, 2016 11:36
[2016-09-29] MEDS: NA PHOSPHATE/BIPHOS 133 ML ENEMA PR ONE ×2 (12:19→12:28)
[2016-09-29] MEDS: OXYCODONE/ACETAMINOPHEN (5/325) TAB PO PRN ×2 (14:21→21:21)
[2016-09-29 16:00] VITALS: BP 102/69; PULSE 80; RESP 19
[2016-09-29 20:00] VITALS: BP 103/65; PULSE 85; RESP 20
[2016-09-30] MEDS: IBUPROFEN 600 MG TAB PO SCH ×3 (00:22→13:15)
[2016-09-30 04:30] VITALS: BP 99/56; PULSE 84; RESP 20
[2016-09-30 08:00] VITALS: BP 124/60; PULSE 78; RESP 19
[2016-09-30] MEDS: SENNA/DOCUSATE NA (8.6MG/50MG) TAB PO SCH (08:42)
[2016-09-30] MEDS ORDERED: DIPHTH/TET/ACEL PERTUSS (ADULT) 0.5 ML VIAL IM* ONE (09:00)
--- NOTE | 2016-09-30 11:34 | PD.PPDC ---
[employer] Discharge Instruction Condition Patient Condition: Good Diet Diet: Resume Regular Diet Activity/Restrictions Activity: Normal Activity May Shower Restrictions: No Exercising Wound/Drain Care Instructions Wound/Drain Care Instructions: Remove Steri Strips in 1 week Follow-up Follow-up with Physician: 4, Day/Days Provider Information: Appointment clinic to IMELDA his jessica in 4 days Return to clinic for VAMP LINER Instructions: Fever greater than 101 Chills Worsening abdominal pain Excessive Vaginal Bleeding More than 2 pads per hour Unable to tolerate diet OB Instructions: Breast Tenderness Blurried Vision Surgical Instructions: Incisional Drainage Incisional Redness SUMA THOMPSON MD Sep 30, 2016 11:34
--- NOTE | 2016-09-30 11:38 | DS ---
Date/Time of Note Date/Time of Note DATE: 09/30/16 TIME: 11:35 Obstetrical Discharge Record Final Diagnosis Final Diagnosis: Term delivered Section Section: Primary Complications Other (Nonreassuring heart rate category 2 and 3) Augmentation: Yes Rupture of Membranes: No Condition on Discharge Physical Assessment Last Vitals: Afebrile, vital signs stable, abdomen soft, incision, bowel sounds., Patient had normal bowel movement, discharged home with follow-up instruction recommended appointment to the office in 4 days for removal of the staple and postoperative check Voiding: Yes Bowel Movement: Yes Breast: Soft, non-tender, Filling Fundus: Firm Abdomen and Incision: Dry healing well free of inflammation. Calf Tenderness: No Patient Condition: Good SUMA THOMPSON MD Sep 30, 2016 11:38
== END 2016-09-30 17:43 | disposition home or self-care (01) | DRG 766 ==
LOC: L-D 16:57 → PP1 09-27 12:29
PROVIDERS: ADMIT Obstetrics & Gynecology; ATTEND Obstetrics & Gynecology
PROC: 10D00Z1 Extraction of Products of Conception, Low, Open Approach (ICD-10-PCS; principal; 2016-09-27 08:00)
DX: O76 Abnormality in fetal heart rate and rhythm complicating labor and delivery (principal); O48.0 Post-term pregnancy; Z3A.40 40 weeks gestation of pregnancy; Z37.0 Single live birth
CPT/HCPCS: 62319; 85025; 85610; 85730; 86592; 86885; 86900; 86901; 87340; 90715; 99464; J0690; J1885; J2274; J2405; J2590; J3010; J3105; J7120